=== PATIENT | male | born 1970 | race African-American/Black ===

== ENCOUNTER 2023-06-15 09:49 | Observation (INO) | payer BC ==
[2023-06-15] MEDS ORDERED: LIDOCAINE 2% INJ, 20 mL 20 ML ONE (10:14)
[2023-06-15] MEDS ORDERED: Phenylephrine HCl 10 MG/ML 1 ML VIAL ONE ×2 (10:23→11:00)
[2023-06-15] MEDS ORDERED: NA CHLORIDE 0.9% 2,000 ML ONE (11:00)
[2023-06-15 11:17] LABS: Absolute Basophils 0.1 K/uL (0-0.5); Absolute Eosinophils 0.1 K/uL (0-0.5); Absolute Lymphocytes (CBC) 1.9 K/uL (0.7-4.9); Absolute Monocytes 0.9 K/uL (0.1-1.3); Basophils % 1.2 % (0-1.3); Eosinophils % 0.8 % (0-4.4); Hematocrit 33.6 % (39.6-49.0); MCH 30.9 pg (27.0-35.0); MCHC 32.9 g/dL (32.0-36.0); MCV 93.9 fL (80-100); MPV 9.1 fL (7.6-11.3); Platelets 252 thou/uL (152-406); RBC Red Blood Cell Count 3.58 M/uL (4.33-5.43)
[2023-06-15 11:21] LABS: PT Prothrombin Time 12.4 SECONDS (9.5-12.5); Protime INR 1.13
[2023-06-15 11:34] LABS: Anion Gap 5.3 mEq/L (5.0-15.0); Potassium 3.3 mEq/L (3.5-5.1)
[2023-06-15] MEDS ORDERED: NA CHLORIDE 0.9% 250 ML ONE ×2 (11:34→12:02)
[2023-06-15] MEDS ORDERED: LIDOCAINE 2% MPF 5 ML VIAL ONE ×3 (11:42→12:29)
[2023-06-15 12:09] LABS: Barbiturates NEGATIVE (NEGATIVE); Benzodiazepines NEGATIVE (NEGATIVE); Cocaine NEGATIVE (NEGATIVE); METHAMPHETAM NEGATIVE (NEGATIVE); Methadone NEGATIVE (NEGATIVE); Opiates NEGATIVE (NEGATIVE); Phencyclidine NEGATIVE (NEGATIVE); THC Cannibis NEGATIVE (NEGATIVE)
[2023-06-15] MEDS ORDERED: NA CHLORIDE 0.9% 100 ML ONE (13:07)
[2023-06-15] MEDS ORDERED: MORPHINE 2 MG/ML SYR ONE (13:07)
[2023-06-15] MEDS ORDERED: CEFAZOLIN SODIUM 2 GM/VIAL ONE (13:08)
[2023-06-15 13:23] LABS: Blood Gas Oxyhemoglobin 95.1 % (94-97); Blood O2 Saturation 97.6 % (92-98.5)
[2023-06-15 13:24] LABS: Arterial Blood Carboxyhemoglob 0.9 % (0-1.5); Blood Gas THB 10.7 g/dl (12-18)
[2023-06-15] MEDS ORDERED: NA CHLORIDE 0.9% 1,000 ML ONE (14:11)
[2023-06-15] MEDS ORDERED: HYDROMORPHONE HCL 1 MG/ML INJ ONE (16:15)
[2023-06-15] MEDS ORDERED: ONDANSETRON 4 MG/2 ML VIAL ONE (16:15)
--- NOTE | 2023-06-15 19:43 | RAD REPORT ---
EXAM DESCRIPTION: CT - Pelvis Angio - 06/15/2023 7:33 pm CLINICAL HISTORY: rule out pelvic mass or arterial lesion, priaprism Pelvic pain and swelling COMPARISON: No comparisons FINDINGS: There is a large amount of soft tissue swelling as well as small air bubbles within the pe nile shaft and at the base of the penis. Inflammatory fat stranding is also present lower anterior pe lvis. No intrapelvic mass or free fluid collection. No vascular abnormality. IMPRESSION: Large amount of soft tissue swelling with small air bubbles involving the penile shaft. This is of unclear etiology and may be trauma related or infectious. Inflammatory changes are also pr esent in the fat anteriorly of the lower pelvis. No vascular abnormality seen. All CT scans are performed using dose optimization technique as appropriate and may include automated exposure control or mA/KV adjustment according to patient size.
--- NOTE | 2023-06-15 20:01 | ER ---
Nurse's Notes [facility] Name: Ramona Costello Jr Age: 52 yrs Sex: Male : 1970 Arrival Date: 06/15/2023 Time: 09:49 Bed 12 Private MD: Diagnosis: Priapism, unspecified Presentation: 06/14 10:25 Chief complaint: Patient states: priapism since yesterday, was seen at [facility]. iw Coronavirus screen: At this time, the client does not indicate any symptoms associated with coronavirus-19. Ebola Screen: Patient negative for fever greater than or equal to 101.5 degrees Fahrenheit, and additional compatible Ebola Virus Disease symptoms Patient denies exposure to infectious person. Patient denies travel to an Ebola-affected area in the 21 days before illness onset. No symptoms or risks identified at this time. Initial Sepsis Screen: Does the patient meet any 2 criteria? No. Patient's initial sepsis screen is negative. Does the patient have a suspected source of infection? No. Patient's initial sepsis screen is negative. Risk Assessment: Do you want to hurt yourself or someone else? Patient reports no desire to harm self or others. Onset of symptoms was June 15, 2023. 10:25 Method Of Arrival: Wheelchair iw 10:25 Acuity: ANIA 2 iw Historical: - Allergies: 11:00 No Known Allergies; ko1 - Immunization history:: Adult Immunizations up to date. - Infectious Disease History:: Denies. - Social history:: Smoking status: Patient denies any tobacco usage or history of. Screenin:17 [facility] ED Fall Risk Assessment (Adult) History of falling in the last 3 months, ko1 including since admission No falls in past 3 months (0 pts) Confusion or Disorientation No (0 pts) Intoxicated or Sedated No (0 pts) Impaired Gait No (0 pts) Mobility Assist Device Used No (0 pt) Altered Elimination No (0 pt) Score/Fall Risk Level 0 - 2 = Low Risk Oriented to surroundings, Maintained a safe environment, Educated pt \T\ family on fall prevention, incl call for assistance when getting out of bed, Assessed \T\ reinforced patient's understanding of fall precautions, Provided non-skid footwear, Hourly rounding (assess needs \T\ fall precautionary measures) done, Used ambulatory aids as needed (educated on \T\ assisted with), Used gait belt as appropriate. Abuse screen: Denies threats or abuse. Denies injuries from another. Nutritional screening: No deficits noted. Tuberculosis screening: No symptoms or risk factors identified. Assessment: 10:17 General: Appears in no apparent distress. uncomfortable, Behavior is calm, cooperative, ko1 appropriate for age. Pain: Complains of pain in shaft of penis. Neuro: No deficits noted. Cardiovascular: No deficits noted. Respiratory: No deficits noted. GI: No deficits noted. : No deficits noted. EENT: No deficits noted. Derm: No deficits noted. Musculoskeletal: No deficits noted. 11:00 Reassessment: Patient appears in no apparent distress at this time. No changes from ko1 previously documented assessment. Patient and/or family updated on plan of care and expected duration. Pain level reassessed. Patient is alert, oriented x 3, equal unlabored respirations, skin warm/dry/pink. 11:48 Reassessment: Dr Serna at bedside. ko1 14:20 Reassessment: Patient and/or family updated on plan of care and expected duration. Pain tl4 level reassessed. Patient is alert, oriented x 3, equal unlabored respirations, skin warm/dry/pink. Pt denies any needs at this time. Call figueroa given to patient with instruction. Family at bedside. Will continue to monitor. 16:47 Reassessment: No changes from previously documented assessment. Patient and/or family tl4 updated on plan of care and expected duration. Pain level reassessed. Patient is alert, oriented x 3, equal unlabored respirations, skin warm/dry/pink. Pt resting comfortably, denies needs. Family at bedside. Awaiting Dr. Serna to re-evaluate. Will continue to monitor. Call figueroa at bedside. 18:17 Reassessment: No changes from previously documented assessment. Patient and/or family tl4 updated on plan of care and expected duration. Pain level reassessed. Patient is alert, oriented x 3, equal unlabored respirations, skin warm/dry/pink. Pt updated on status. Pt denies any needs at this time. Family at bedside. Will continue to monitor. Patient denies pain at this time. 19:00 Reassessment: No changes from previously documented assessment. Patient and/or family tl4 updated on plan of care and expected duration. Pain level reassessed. Patient is alert, oriented x 3, equal unlabored respirations, skin warm/dry/pink. MD Serna at bedside to perform ABG. 06/15 00:46 Reassessment: Pt transfer upstairs delayed do to another emergency. vc1 Vital Signs: 06/14 10:00 BP 136 / 81; Pulse 69; Resp 16; Pulse Ox 99% on R/A; Weight 99.79 kg; Height 5 ft. 11 em1 in. ; Pain 5/10; 10:58 BP 128 / 66; Pulse 61; Resp 18; Pulse Ox 100% ; ko1 13:13 BP 133 / 85; Pulse 72; Resp 23 S; Pulse Ox 100% on R/A; kc6 14:00 BP 137 / 88; Pulse 76; Resp 15; Pulse Ox 99% on 3 lpm NC; ko1 16:00 BP 125 / 83; Pulse 64; Resp 16; Pulse Ox 100% on R/A; Pain 0/10; tl4 17:00 BP 119 / 72; Pulse 72; Resp 18; Pulse Ox 99% on R/A; tl4 18:00 BP 117 / 71; Pulse 60; Resp 16; Pulse Ox 100% on R/A; Pain 0/10; tl4 19:00 BP 127 / 88; Pulse 70; Resp 16; Pulse Ox 100% on 3 lpm NC; vc1 20:00 BP 138 / 88; Pulse 67; Resp 18; Pulse Ox 100% on 3 lpm NC; vc1 21:00 BP 147 / 91; Pulse 67; Resp 16; Pulse Ox 100% on 3 lpm NC; vc1 22:00 BP 128 / 88; Pulse 62; Resp 16; Pulse Ox 100% on 3 lpm NC; vc1 23:00 BP 124 / 71; Pulse 83; Resp 16; Temp 98.6; Pulse Ox 99% ; vc1 10:00 Body Mass Index 30.68 (99.79 kg, 180.34 cm) em1 10:00 Pain Scale: Adult em1 16:00 Pain Scale: Adult tl4 18:00 Pain Scale: Adult tl4 ED Course: 09:52 Patient arrived in ED. im 09:56 Mick Julio MD is Attending Physician. sp3 10:16 Tamy Rivera, MARIA INES is Primary Nurse. ko1 10:17 Patient has correct armband on for positive identification. Placed in gown. Bed in low ko1 position. Call light in reach. Side rails up X 1. Client placed on continuous cardiac and pulse oximetry monitoring. NIBP monitoring applied. security monitor on. Door closed. Noise minimized. Lights dimmed. Warm blanket given. 10:26 Triage completed. iw 11:10 BMP Sent. ko1 11:10 PT-INR Sent. ko1 11:10 CBC with Diff Sent. ko1 11:11 Initial lab(s) drawn, by me, sent to lab. Inserted saline lock: 20 gauge in right em1 antecubital area, using aseptic technique. Blood collected. 11:44 UDS Sent. ko1 13:21 ABG: Penis Sent. ko1 14:00 Assisted provider with: penile drainage. ko1 19:35 Pelvis Angio In Process Unspecified. EDMS 19:59 Kehinde Serna MD is Hospitalizing Provider. sb4 20:26 Primary Nurse role handed off by Tamy Rivera RN wm Administered Medications: 11:00 Drug: Lidocaine Infiltration (1 %) 20 ml 20 ml Infiltration once; to bedside Volume: 20 ko1 ml; Route: Infiltration; 16:46 Follow up: Response: No adverse reaction tl4 11:10 Drug: NS 0.9% IV 2000 ml IV at 1 bolus Per protocol; 1000 mL bolus Route: IV; Rate: 1 ko1 bolus; Site: right antecubital; 14:33 Follow up: Response: No adverse reaction; IV Status: Completed infusion; IV Intake: tl4 2000ml 13:21 Drug: ceFAZolin IVPB 2 grams IVPB once over 30 mins; (mix in 100 mL NS) Route: IVPB; ko1 Infused Over: 30 mins; Site: right antecubital; 14:33 Follow up: Response: No adverse reaction; IV Status: Completed infusion; IV Intake: tl4 100ml 13:22 Drug: morphine IVP or IV 2 mg IVP once over 4 mins Route: IVP; Infused Over: 4 mins; ko1 Site: right antecubital; 13:37 Follow up: Response: No adverse reaction; Pain is decreased ko1 14:34 Drug: NS 0.9% IV 1000 ml IV at 125 ml/hr continuous Route: IV; Rate: 125 ml/hr; Site: tl4 right antecubital; Delivery: Dial-a-flow; 16:45 Drug: Ondansetron IVP 4 mg IVP once; over 2 minutes Route: IVP; Infused Over: 2 mins; tl4 Site: right antecubital; 16:46 Drug: HYDROmorphone IVP 1 mg IVP once Route: IVP; Infused Over: 5 mins; Site: right tl4 antecubital; Medication: 11:00 VIS not applicable for this client. ko1 Intake: 14:33 IV: 2000ml; Total: 2000ml. tl4 14:33 IV: 100ml; Total: 2100ml. tl4 Outcome: 20:00 Decision to Hospitalize by Provider. sb4 06/15 01:20 Patient left the ED. vc1 Signatures: Dispatcher [employer] EDRuby Croft, Jonathan Saini RN emSruthi Powers Setul, MD MD sp3 Kaity Monique RN RN vc1 Jigna Mejias RN RN kc6 Oliver, Kathy, RN RN ko1 Nahomi Lucero, PA-C PA-Robert sb4 Tish Gallegos Toni, RN RN tl4 Corrections: (The following items were deleted from the chart) 06/14 16:47 12:20 Reassessment: Patient and/or family updated on plan of care and expected tl4 duration. Pain level reassessed. Patient is alert, oriented x 3, equal unlabored respirations, skin warm/dry/pink. Pt denies any needs at this time. Call figueroa given to patient with instruction. Family at bedside. Will continue to monitor tl4 19:36 16:48 BP 125 / 83; Pulse 64bpm; Resp 16bpm; Pulse Ox 100% RA; Pain 0/10, Adult; tl4 tl4 19:36 18:18 BP 117 / 71; Pulse 60bpm; Resp 16bpm; Pulse Ox 100% RA; Pain 0/10, Adult; tl4 tl4
--- NOTE | 2023-06-15 20:01 | EDPHYS ---
Physician Documentation [facility] Name: Ramona Costello Jr Age: 52 yrs Sex: Male : 1970 Arrival Date: 06/15/2023 Time: 09:49 Bed 12 Private MD: ED Physician Mick Julio HPI: 06/14 10:20 This 52 yrs old Black Male presents to ER via Unassigned with complaints of Priapism. sp3 10:20 52-year-old male with history of hypertension now presents with priapism since 8 AM sp3 yesterday. Patient went to [facility] yesterday afternoon where he states that they performed corpora cavernosum drainage which fix the problem temporarily but yesterday evening it became erect again. Today he presents with a 5 out of 10 painful erection. No history of trauma, prior priapism, ED medication, or any other ddja-yhq-gtealif meds at this time. He denies abdominal pain, back pain, dysuria, urethral discharge, or any other concerning findings on ROS at this time.. Historical: - Allergies: 11:00 No Known Allergies; ko1 - Immunization history:: Adult Immunizations up to date. - Infectious Disease History:: Denies. - Social history:: Smoking status: Patient denies any tobacco usage or history of. ROS: 10:21 Constitutional: Negative for fever, chills, and weight loss, Eyes: Negative for injury, sp3 pain, redness, and discharge, ENT: Negative for injury, pain, and discharge, Neck: Negative for injury, pain, and swelling, Cardiovascular: Negative for chest pain, palpitations, and edema, Respiratory: Negative for shortness of breath, cough, wheezing, and pleuritic chest pain, Abdomen/GI: Negative for abdominal pain, nausea, vomiting, diarrhea, and constipation, Back: Negative for injury and pain, MS/Extremity: Negative for injury and deformity, Skin: Negative for injury, rash, and discoloration, Neuro: Negative for headache, weakness, numbness, tingling, and seizure, 10:21 All other systems are negative, Exam: 10:21 Constitutional: This is a well developed, well nourished patient who is awake, alert, sp3 and in no acute distress. Head/Face: Normocephalic, atraumatic. Eyes: Pupils equal round and reactive to light, extra-ocular motions intact. Lids and lashes normal. Conjunctiva and sclera are non-icteric and not injected. Cornea within normal limits. Periorbital areas with no swelling, redness, or edema. Neck: Trachea midline, no thyromegaly or masses palpated, and no cervical lymphadenopathy. Supple, full range of motion without nuchal rigidity, or vertebral point tenderness. No Meningismus. Chest/axilla: Normal chest wall appearance and motion. Nontender with no deformity. No lesions are appreciated. Cardiovascular: Regular rate and rhythm with a normal S1 and S2. No gallops, murmurs, or rubs. Normal PMI, no JVD. No pulse deficits. Respiratory: Lungs have equal breath sounds bilaterally, clear to auscultation and percussion. No rales, rhonchi or wheezes noted. No increased work of breathing, no retractions or nasal flaring. Abdomen/GI: Soft, non-tender, with normal bowel sounds. No distension or tympany. No guarding or rebound. No evidence of tenderness throughout. Back: No spinal tenderness. No costovertebral tenderness. Full range of motion. Skin: Warm, dry with normal turgor. Normal color with no rashes, no lesions, and no evidence of cellulitis. MS/ Extremity: Pulses equal, no cyanosis. Neurovascular intact. Full, normal range of motion. 10:21 : Erect penis noted with soft head. Bandages present from yesterday's drainage., Vital Signs: 10:00 BP 136 / 81; Pulse 69; Resp 16; Pulse Ox 99% on R/A; Weight 99.79 kg; Height 5 ft. 11 em1 in. ; Pain 5/10; 10:58 BP 128 / 66; Pulse 61; Resp 18; Pulse Ox 100% ; ko1 13:13 BP 133 / 85; Pulse 72; Resp 23 S; Pulse Ox 100% on R/A; kc6 14:00 BP 137 / 88; Pulse 76; Resp 15; Pulse Ox 99% on 3 lpm NC; ko1 16:00 BP 125 / 83; Pulse 64; Resp 16; Pulse Ox 100% on R/A; Pain 0/10; tl4 17:00 BP 119 / 72; Pulse 72; Resp 18; Pulse Ox 99% on R/A; tl4 18:00 BP 117 / 71; Pulse 60; Resp 16; Pulse Ox 100% on R/A; Pain 0/10; tl4 19:00 BP 127 / 88; Pulse 70; Resp 16; Pulse Ox 100% on 3 lpm NC; vc1 20:00 BP 138 / 88; Pulse 67; Resp 18; Pulse Ox 100% on 3 lpm NC; vc1 21:00 BP 147 / 91; Pulse 67; Resp 16; Pulse Ox 100% on 3 lpm NC; vc1 22:00 BP 128 / 88; Pulse 62; Resp 16; Pulse Ox 100% on 3 lpm NC; vc1 23:00 BP 124 / 71; Pulse 83; Resp 16; Temp 98.6; Pulse Ox 99% ; vc1 10:00 Body Mass Index 30.68 (99.79 kg, 180.34 cm) em1 10:00 Pain Scale: Adult em1 16:00 Pain Scale: Adult tl4 18:00 Pain Scale: Adult tl4 MDM: 09:59 Patient medically screened. sp3 10:22 Data reviewed: vital signs, nurses notes. ED course: 52-year-old male with low flow sp3 priapism since yesterday with drainage performed yesterday at outside hospital. We will redrain here in the ED along with phenylephrine injection. Follow-up with Dr. Serna if we are able to resolve the issue otherwise he is on-call for urology in the emergency department. Disposition pending workup and patient course.. 11:03 ED course: 2% lidocaine without epinephrine injected bilaterally at the base area. sp3 Corpora aspiration performed bilaterally with 35 cc evacuated on the right side and less than 5 cc evacuated on the left side. Diluted saline flush with phenylephrine 10 mg/mL mixed in a 1:5 ratio. 4 injections totaling 1000 mcg injected over 20 minutes on each side. No resolution of erection noted. Patient is on oxygen and IV fluids. I discussed case with Dr. Serna urology on-call who will be in to see patient to perform further intervention. Lab work and U-Tox pending.. 13:56 ED course: Dr. Serna performed bedside drainage and intervention. Please see his note sp3 for details. Patient will remain in ED observation for at least [address] Serna stated that he will be back after his clinic to reevaluate for final disposition. Ancef 2 g IV has also been given. Patient will remain on oxygen and IV fluids.. 06/14 10:56 Order name: UDS; Complete Time: 12:14 sp3 06/14 11:03 Order name: CBC with Diff; Complete Time: 12:14 sp3 06/14 11:03 Order name: PT-INR; Complete Time: 12:14 sp3 06/14 11:03 Order name: BMP; Complete Time: 12:14 sp3 06/14 13:11 Order name: ABG: Penis; Complete Time: 13:32 sp3 06/14 21:39 Order name: CBC with Automated Diff EDMS 06/14 21:39 Order name: Basic Metabolic Panel EDMS 06/14 22:03 Order name: ABG Arterial Blood Gas EDMS 06/14 19:15 Order name: Pelvis Angio; Complete Time: 20:03 EDMS 06/14 22:11 Order name: RC 02 HUMIDIFIER EDMS 06/14 21:39 Order name: EKG Electrocardiogram EDMS 06/14 11:02 Order name: Oxygen: 2 L NC; Complete Time: 11:03 sp3 Administered Medications: 11:00 Drug: Lidocaine Infiltration (1 %) 20 ml 20 ml Infiltration once; to bedside Volume: 20 ko1 ml; Route: Infiltration; 16:46 Follow up: Response: No adverse reaction tl4 11:10 Drug: NS 0.9% IV 2000 ml IV at 1 bolus Per protocol; 1000 mL bolus Route: IV; Rate: 1 ko1 bolus; Site: right antecubital; 14:33 Follow up: Response: No adverse reaction; IV Status: Completed infusion; IV Intake: tl4 2000ml 13:21 Drug: ceFAZolin IVPB 2 grams IVPB once over 30 mins; (mix in 100 mL NS) Route: IVPB; ko1 Infused Over: 30 mins; Site: right antecubital; 14:33 Follow up: Response: No adverse reaction; IV Status: Completed infusion; IV Intake: tl4 100ml 13:22 Drug: morphine IVP or IV 2 mg IVP once over 4 mins Route: IVP; Infused Over: 4 mins; ko1 Site: right antecubital; 13:37 Follow up: Response: No adverse reaction; Pain is decreased ko1 14:34 Drug: NS 0.9% IV 1000 ml IV at 125 ml/hr continuous Route: IV; Rate: 125 ml/hr; Site: tl4 right antecubital; Delivery: Dial-a-flow; 16:45 Drug: Ondansetron IVP 4 mg IVP once; over 2 minutes Route: IVP; Infused Over: 2 mins; tl4 Site: right antecubital; 16:46 Drug: HYDROmorphone IVP 1 mg IVP once Route: IVP; Infused Over: 5 mins; Site: right tl4 antecubital; Disposition Summary: 06/15/23 20:00 Hospitalization Ordered Notes: Provider: Kehinde Serna sb4 Condition: Fair sb4 Problem: new sb4 Symptoms: are unchanged sb4 Bed/Room Type: Standard sb4 Hospitalization Status: Observation(06/15/23 20:43) sb4 Location: Telemetry/MedSurg (observation)(06/15/23 20:43) sb4 Room Assignment: [facility](06/15/23 23:38) vc1 Diagnosis - Priapism, unspecified sb4 Forms: - Medication Reconciliation Form sb4 - SBAR form sb4 - Leadership Thank You Letter sb4 Signatures: Dispatcher [employer] EDMS Mick Julio MD MD sp3 Kaity Monique RN RN vc1 Tamy Rivera RN RN koNahomi Torres PA-C PA-C sb4 Porfirio Gordillo RN RN tl4 Corrections: (The following items were deleted from the chart) 11:15 11:03 ED course: 2% lidocaine without epinephrine injected bilaterally at the base sp3 area. Corpora aspiration performed bilaterally with 35 cc evacuated on the right side and less than 5 cc evacuated on the left side. Diluted saline flush with phenylephrine 10 mg/mL mixed in a 1:5 ratio. 4 injections totaling 1000 mcg injected over 20 minutes on each side. No resolution of erection noted. I discussed case with Dr. Serna urology on-call who will be in to see patient to perform further intervention.. sp3 13:11 13:11 Arterial Blood Gas+RC.LAB.BRZ ordered. EDMS EDMS 19:15 18:55 Pelvis W/Cont+CT.RAD.BRZ ordered. EDMS EDMS 20:04 20:00 Telemetry/MedSurg (Inpatient) sb4 sb4 20:04 20:00 sb4 sb4 20:43 20:00 Inpatient Admission sb4 sb4 20:43 20:04 Operating Room sb4 sb4 20:43 20:04 sb4 sb4 23:38 20:43 sb4 vc1
[2023-06-15] MEDS: ASPIRIN EC 81 MG TAB PO ONE (21:16)
[2023-06-15] MEDS: BACLOFEN 10 MG TAB PO ONE (21:16)
[2023-06-15 22:01] LABS: Blood Gas Oxyhemoglobin 20.1 % (94-97); Blood O2 Saturation 20.5 % (92-98.5)
[2023-06-15 22:02] LABS: Arterial Blood Carboxyhemoglob 0.3 % (0-1.5)
--- NOTE | 2023-06-15 22:13 | P.HP ---
Date of Service: 06/15/23 52-year-old gentleman with hypertension and hypercholesterolemia presented to the [facility] emergency department this morning with complaints of priapism. He had previously been seen at the [facility] emergency department yesterday evening around 6 PM, where he was apparently given some phenylephrine injections intracorporeal in addition to possible aspiration/irrigation before being discharged home. It is unclear the degree of resolution, but he returned to the [facility] emergency de partment this morning with recurrent painful priapism. His erection, the patient notes, began around 9 AM yesterday. In the [facility] emergency department, the ED physicians provided the patient with 2 injections into each corporal body of 500 mcg phenylephrine and aspirated his corporal bodies using an 18-gauge Angiocath without resolution of the priapism, at which point they contacted me around 11:15 AM. I arrived to visit with the patient and evaluate around 11:45 AM and performed a series of procedures as documented below. Past medical history: As above Past surgical history: Noncontributory Family history: Denies urologic malignancy Social history: Denies recreational drug use and toxicology screen negative Examination: Patient uncomfortable appearing and in a mild to moderate degree of distress but joking potentially as a compensatory mechanism I had already requested the emergency department start an IV and give him 2 L of IV fluids, and that was running with only about 50 to 100 cc administered. I also requested the emergency department give him nasal cannula oxygen, and he was receiving 2 L, which I have then increased to 3 L during the course of my initial visit with him at 11:45AM Patient's abdomen was nontender and nondistended Phallus was rigidly erect with subcutaneous edema and hematoma from prior needlesticks, aspiration and injection. Phallus tender to palpation but no superficial signs of infection. Warm to the touch. The rigidity extended into the infrapubic region along the pubic rami. The glans penis was not tense or rigid or tender. 06/15/2023 WBC 8.0, hemoglobin/hematocrit 11.0/33.6, platelets 252, INR 1.13, potassium 3.3, creatinine 1.29 with EGFR 67, toxicology screen negative Penile block followed by extensive corporal aspiration, irrigation, and phenylephrine injection procedure note: I prepped the patient's phallus in its entirety with Betadine including the infrapubic region before using 20 cc of 2% lidocaine diluted one-to-one with sterile injectable saline, injected into the infrapubic region in the midline and bilaterally in the region of the neurovascular bundles in order to achieve a penile block. This did result in significant relief of the patient's pain as the phallus became numb. I was then able to manipulate the phallus as follows. 18-gauge needle was placed into the base of the phallus laterally in the right corporal body to begin to drain some blood. I then placed a another 18-gauge needle into the base laterally in the left corporal body, avoiding the neurovascular bundles on each side. I then utilized these 2 attempt to aspirate blood and irrigated with sterile injectable saline. After the initial period of aspiration and irrigation, without significant resolution of the tumescence, I then utilized 500 micrograms of phenylephrine diluted in 35 cc of injectable saline, and I administered equal aliquots of about 12.5 cc of the dilute mixture, or about 150 to 200 mcg of phenylephrine, into each needle or Angiocath currently inserted. The phallus did appear to partially, but incompletely, detumesce. As a result, I placed an additional 14-gauge Angiocath into the wood ent's left corporal body more proximal to the 18-gauge needle previously placed and still in position. This did improve the drainage on the left side, which was initially not draining as well despite attempts at aspiration and irrigation as well as phenylephrine injection. I then continued to perform a degree of penile modeling to try to express out all of the trapped blood, and I was successful and achieving near complete detumescence of the distal two thirds of the phallus, but the proximal one third and area involving the corporal rami remained tumescent and tender to palpation and attempts to express blood from within. As a result, I continued aspiration, irrigation, and a injected an additional 500 mcg of phenylephrine into each of the placed Angiocath or needles again. More than 15 to 20 minutes elapsed between each bout of phenylephrine injection. While the phallus did appear to significantly detumesced and I was eventually able to aspirate much of the blood from within the infrapubic corporal rami, the phallus remained likely 40% erect; so I continue to aspirate and irrigate achieving good flow within the right corporal body but less excellent flow in the left. This would suggest continued compartment syndrome at least within the left corporal body. So at this point, I placed an additional 14-gauge Angiocath into the distal left corporal body laterally and again allowed a significant quantity of blood to drain before irrigating and ultimately injecting another 250 mcg of phenylephrine. Significant improvement in flow from proximal to distal on the left side was then achieved, but the phallus still remained incompletely flaccid. I thus placed an additional 14-gauge Angiocath in the distal right corporal body laterally and again allowed blood to drain before again irrigating and injecting the last 250 mcg of phenylephrine in order to achieve detumescence that was approximately 40% of the rigid state. I thus began to remove each of the needles and Angiocath's sequentially, holding pressure and the spot for several minutes also remodeling the penis to try to express out the blood between the Angiocath or needle removal, with the last Angiocath being removed from the left distal corporal body. At this point, it was clear that the blood emanating from the corporal body on the left was bright red and arterial appearing; so I obtained an ABG, which revealed the followin:13 PM penile ABG pH 7.39, pCO2 33.9, pO2 113, HCO3 20.1 -arterial blood flow. As a result, I recommended a period of observation to see if the phallus would continue to detumesce, during which time we will continue the patient on IV fluids, which he was receiving at 125 cc/h, and the nasal cannula oxygen therapy. During the procedure, I additionally gave him 2 mg of morphine for pain control, and I reapplied 10 cc of 2% lidocaine diluted one-to-one and injectable saline to attempt to repeat the penile block, as I had been at the procedure for now over 1.5 hours, and the initial block had worn off. I returned to see the patient around 6:45 PM this evening, and reassess the patient. He was more comfortable appearing at this point, but he had been given 1 mg of Dilaudid, which significantly relieved any discomfort he may have had. Prior to the administration of the Dilaudid, a sounded like he was having a moderate degree of discomfort, which she mostly described as soreness in the phallus but no significant pain. As a result, I reassessed his phallus as below: Reassessment examination: Patient comfortable appearing and in no acute distress Alert awake oriented x 3 No dyspnea or sign of respiratory distress Phallus approximately 60% rigid, partially bendable, with a composite of 50% resolution of the rigidity in the infrapubic corporal bodies versus 70% rigidity in the pendulous component of the phallus. Because of concern for ongoing ischemia and compartment syndrome, while there was significant edema and potentially hematoma around the corporal bodies, I recommended a repeat attempt at penile ABG to assess. Penile arterial blood gas assessment procedure note: I utilized an alcohol pad to prep the mid base shaft of the right lateral aspect of his penis, and I utilized the ABG needle inserted through the skin deeply to try to get into the corporal body. No blood filled the syringe, and the ABG syringes not eligible for aspiration. So I manipulated the needle backing it out a bit while manually compressing the phallus until I was able to express some blood into the ABG syringe, but it is unclear if that blood was from the surrounding blood collected in the dark toes layers and subcutaneous layers versus actually a corporal body. 7:10 PM penile ABG pH 6.953, pCO2 83.2, pO2 23.2, bicarb 17.5 Given the above findings, I then consulted with the psychology department chair, Dr. Gio Hylton via phone and also a expert in management of phallic issues, Dr. Tin Lainez, co-faculty with [facility], to discuss options for next steps, as I was anticipating the need for operative intervention and planning a distal carporoglandar/Sanz shunt. Upon discussion of the history above, Dr. Hylton felt it would be reasonable to either observe him overnight potentially intervene in the morning if it fails to improve versus proceeding with immediate Sanz shunt. Dr. Lainez also felt it would be reasonable to observe him overnight, given the estimated 30 to 40% reduction in rigidity of the erection, during which time medical therapies including aspirin and potentially application of an intermittently applying blood pressure cuff to manually exp ress the phallus, could be performed, but he also indicated that as it was approaching 36 hours of priapism, it would be completely reasonable to immediately proceed not just to performing a Sanz shunt, but also the strongly recommended that the corporal bodies be snaked out/rodded out to eliminate the potential for recurrent priapism and need for repeat operative excursion. As a result, I had begun to consult with the patient and his significant other, who is a nurse and mother of one of his children, as I had done throughout the entirety of both of my evaluations above, where I explained the potential need for the shunt. After discussion with Dr. Lainez, I explained that the more expert recommendation would be not just to do the shunt but also to destroy the sinusoidal tissues of the corporal bodies to prevent recurrence of the priapism. I explained to the patient and his significant other in great detail that while it is highly likely his ability to achieve an erection spontaneously following the corporal dilation along with the shunt, it is not impossible that he might be able to achieve an erection. I made it very clear that that was unlikely however. We contrasted this with the decision to observe, during which time ongoing ischemia would likely continue to contribute to corporal fibrosis, which would also eliminate his ability to achieve a functional erection. I explained that while some individuals would proceed directly to placement of a prosthesis after 24 to 36 hours of priapism, that also would eliminate his ability to achieve a spontaneous erection and relegate him to requiring erection via mechanical device. I also explained that we do not have either malleable or other inflatable penile prostheses present at this facility; so placement of a prosthesis at this time would not be able to be performed regardless. Extensive discussion was held including the pros and cons of each approach over the course of over 1 hour of discussion. Ultimately, the patient decided to observe for the night, noting the partial detumescence, and accept the risks associated with potential continuation of the compartment syndrome. Assessment and recommendation: 52-year-old gentleman with hypertension and hypercholesterolemia with longstanding, 34 hours of priapism refractory to multiple attempts at aspiration, irrigation and phenylephrine injection, now partially detumesced approximately 30 to 40%. -See extensive discussion above. Plan as below: Admit for observation LR at 150 cc/h Continue nasal cannula O2 at 3 L/min N.p.o. after 11 PM tonight but may have ice chips and sips of water Repeat labs, CBC and BMP at 5 AM Initiate subcu heparin 5000 units every 8 hours Dilaudid 0.5 mg every 2 hours as needed moderate pain Aspirin 162 mg x 1 dose now Baclofen 20 mg x 1 dose now Ceftriaxone 1 g every 12 hours starting now Sildenafil 20 mg x 1 at 2 AM Terbutaline 2.5 mg x 1 now Pediatric blood pressure cuff cycled every 2 minutes applied distally to the phallus beneath the sunshine of the glans penis as long as it does not cause significant pain with the pressure on inflation
[2023-06-15] MEDS ORDERED: NA CHLORIDE 0.9% 50 ML ONE (22:44)
[2023-06-15] MEDS ORDERED: ASPIRIN EC 81 MG TAB PO ONE (22:44)
[2023-06-15] MEDS ORDERED: HEPARIN 5000 UNIT/ML 1 ML VIAL ONE (22:44)
[2023-06-15] MEDS ORDERED: Ringers Lactate 1,000 ML IV ONE (22:44)
[2023-06-15] MEDS: CEFTRIAXONE 1,000 MG in NA CHLORIDE 0.9% 50 ML IVPB SCH (22:55)
[2023-06-15] MEDS: Ringers Lactate 1,000 ML IV SCH (23:00)
[2023-06-15] MEDS: HEPARIN 5000 UNIT/ML 1 ML VIAL SQ SCH (23:00)
[2023-06-15] MEDS ORDERED: HYDROMORPHONE HCL 0.5 MG/0.5 ML INJ ONE (23:02)
[2023-06-15] MEDS: BACLOFEN 10 MG TAB ONE (23:07)
[2023-06-15] MEDS: HYDROMORPHONE HCL 1 MG/ML INJ IV PRN (23:07)
[2023-06-15] MEDS: SILDENAFIL CITRATE 20 MG TABLET PO ONE (23:57)
[2023-06-16] MEDS: TERBUTALINE SULF 2.5 MG TAB PO ONE (00:10)
[2023-06-16] MEDS: HYDROMORPHONE HCL 0.5 MG/0.5 ML INJ IV PRN (02:33)
[2023-06-16 03:15] VITALS: BMI 30.7
[2023-06-16 04:36] LABS: Absolute Eosinophils 0.1 K/uL (0-0.5); Absolute Lymphocytes (CBC) 1.9 K/uL (0.7-4.9); Absolute Monocytes 0.7 K/uL (0.1-1.3); Absolute Neutrophil 3.3 K/uL (1.8-8.0); Basophils % 0.8 % (0-1.3); Hematocrit 25.7 % (39.6-49.0); Hemoglobin 8.6 g/dL (13.6-17.9); Lymphocytes % 31.2 % (15.3-44.8); MCH 31.5 pg (27.0-35.0); MCHC 33.5 g/dL (32.0-36.0); MCV 93.9 fL (80-100); MPV 9.7 fL (7.6-11.3); Monocytes % 11.3 % (3.3-12.3); Neutrophils % 55.7 % (41.7-73.7); Platelets 185 thou/uL (152-406); RBC Red Blood Cell Count 2.74 M/uL (4.33-5.43); Red Cell Distribution Width 14.6 % (12.1-15.2)
[2023-06-16 04:42] LABS: Anion Gap 8.5 mEq/L (5.0-15.0); Potassium 3.5 mEq/L (3.5-5.1)
[2023-06-16] MEDS: BACITRACIN OINTMENT 14 GM TUBE TOP ONE (07:06)
[2023-06-16] MEDS ORDERED: LIDOCAINE 2% MPF 5 ML VIAL ONE (07:23)
[2023-06-16] MEDS ORDERED: ROCURONIUM 50 MG/5 ML VIAL IV ONE (07:23)
[2023-06-16] MEDS ORDERED: propofoL 200 MG/20 ML VIAL IV ONE (07:23)
[2023-06-16] MEDS ORDERED: FENTANYL CITR 100 MCG/2 ML ONE (07:23)
[2023-06-16] MEDS ORDERED: MIDAZOLAM HCL 2 MG/2 ML INJ ONE (07:23)
[2023-06-16] MEDS ORDERED: ONDANSETRON 4 MG/2 ML VIAL ONE (07:23)
[2023-06-16] MEDS: SUGAMMADEX SODIUM 200 MG/2 ML VIAL IV ONE (07:28)
[2023-06-16] MEDS: SUCCINYLCHOLINE 20 MG/ML (10 ML) IV ONE (07:28)
[2023-06-16] MEDS: Ringers Lactate 1,000 ML IV ONE ×2 (07:42→09:00)
[2023-06-16] MEDS ORDERED: EPHEDRINE SULF 50 MG/ML VIAL ONE (08:00)
--- NOTE | 2023-06-16 08:04 | P.PN ---
Subjective Date of Service: 06/16/23 Chief Complaint: priapism He received all of the medications last night with the exception of the terbutaline, because it was not available on formulary despite its availability to prescribe electronically. Initially, the sildenafil was also seen is not available, but they were able to find a dose and provide him with that as well. He tolerated use of the pediatric blood pressure cuff compression therapy during the night for several hours before ultimately taking it off because of pain. They did appreciate some decrease in the turgidity following that therapy, but then it reverted a bit. As of yesterday evening around 8 PM, I noted that the decrease and priapism/tumescence to be between 30 and 40% of my initial assessment of the rigidity. As of this morning at 7:30 AM, he was having no significant pain even with manipulation of his phallus. He last received a dose of 0.5 mg of IV Dilaudid at 2:30 AM. Examination: Thickened subcutaneous tissue likely with blood/hematoma within, but nontender and malleable to around 40 to 50% from full rigidity observed yesterday. I spoke with the patient and his significant other for around 20 minutes this morning by phone, where they expressed having discussed this further with his mother and other family members and wondering about the potential for transfer to another facility versus simply performing the shunt without reaming out the corporal bodies. I explained that unfortunately, given the time elapsed that is occurred, additional time delay for transfer would be ill-advised, and also, since all of the urologists at the [facility] are away at the [employer] annual meeting, there is no subject matter expertise available beyond that which I am capable of providing. As it relates to the idea of performing the shunt alone without reaming out the corporal bodies, I discussed that further with Dr. Lainez, subject matter expert, and when I met with the patient and his significant other at around 7:30 AM, I then explained to the patient that we could do only the shunt, if that is what he desired, but the chances of it being successful at resolving his priapism was less than 10%. Further, the likelihood of corporal fibrosis and permanent erectile dysfunction was high whether we reamed out the corporal bodies or not, and equally as high at this point given the greater than 24 hours of priapism. However ultimately, I agreed to proceed as he desired since he would have to live with his decision in terms of the outcome. He expressed a desire to try to preserve what ever chance may be, however small, and his ability to potentially recover the ability to achieve a spontaneous erection, and not undergo corporal body reaming at this time and instead simply undergo the shunt. He recognized that should this fail, there may be need for additional operative management down the line, and he would not be eligible for a prosthesis for at least 3 weeks because of the risk of extrusion or erosion of the prosthetic. In summary, we agreed that I would begin with a distal corporoglandar shunt, followed sequentially if necessary by a proximal cannula to attempt to irrigate out the sludge then potentially a proximal shunt corporocavernosal to attempt to achieve at least a significant degree of further detumescence, but ultimately, if not improved over where we started, while already under anesthesia, reaming out of the corporal bodies may be required. I explained that it would not be reasonable to wake him up with an erection as bad or worse than it currently is. He agreed. Physical Examination - Vital Signs Temperature: 98.9 F Blood Pressure: 116/49 Pulse: 60 Respirations: 17 Pulse Ox (%): 99 - Studies Laboratory Data (last 24 hrs) 06/15/23 06/15/23 06/15/23 11:05 11:05 11:05 WBC 8.00 Hgb 11.0 L Hct 33.6 L Plt Count 252 PT 12.4 INR 1.13 Sodium 137 Potassium 3.3 L BUN 10 Creatinine 1.29 Glucose 97 Assessment And Plan - Current Problems (Diagnosis) (1) Ischemic priapism Current Visit: Yes Status: Acute Critical Care: No Time Spent Managing PTS Care (In Minutes): 60
[2023-06-16] MEDS: CEFTRIAXONE 1000 MG/VIAL ONE (08:18)
[2023-06-16] MEDS: BUPIVACAINE 0.25% PF 30 ML VIAL ONE (08:32)
[2023-06-16] MEDS: LIDOCAINE 1% MPF 30 ML VIAL ONE (08:32)
[2023-06-16] MEDS: NA CHLORIDE 0.9% 1,000 ML ONE (08:46)
[2023-06-16] MEDS: HEPARIN 5000 UNIT/ML 1 ML VIAL ONE (08:56)
[2023-06-16 09:04] LABS: Arterial Blood Carboxyhemoglob 0.8 % (0-1.5); Blood Gas Oxyhemoglobin 90.4 % (94-97); Blood O2 Saturation 92.2 % (92-98.5)
[2023-06-16 09:06] LABS: Blood Gas Inspired Oxygen 0.2 %
[2023-06-16 09:36] LABS: Blood O2 Saturation 98.8 % (92-98.5)
[2023-06-16 09:37] LABS: Arterial Blood Carboxyhemoglob 0.8 % (0-1.5); Blood Gas Oxyhemoglobin 96.8 % (94-97); Blood Gas THB 10.7 g/dl (12-18)
--- NOTE | 2023-06-16 10:26 | P.OP ---
Date of Service: 06/16/23 Preoperative diagnosis: Refractory priapism s/p multiple attempts at corporal aspiration and phenylephrine injection Postoperative diagnoses: Same Principal procedures: Placement of a urethral Joseph catheter Penile block Creation of a corporocavernosoglandar shunt Corporal aspiration and irrigation Indication for procedure: 52-year-old gentleman with hypertension and hypercholesterolemia with longstanding, >34 hours of priapism refractory to multiple attempts at aspiration, irrigation and phenylephrine injection, and persistent despite overnight observation and intensive medical management including aspirin, subcu heparin, terbutaline, IV fluids, oxygen administration, baclofen, and ceftriaxone administration. Procedure note: The patient was consented in the preoperative holding area before being transferred to the operative suite where general anesthesia was induced. He was placed in the low lithotomy position, padded and secured to the table appropriately. His genitalia, suprapubic region and perineal region was prepped in standard fashion using Betadine scrub followed by paint before being draped in standard fashion. An 18 Latvian urethral Joseph catheter was placed via his urethra into his bladder with ease and 10 cc of sterile water was placed in the balloon. The catheter was allowed to decompress of several 100 cc of clear yellow urine. I then clamped the catheter leaving it in place and palpated the corporal bodies of the penis which was still partially rigid at about 60% rigidity at this point. As a result, I utilized a one-to-one mixture of quarter percent Marcaine and 1% lidocaine to inject 10 cc of the mixture in the infrapubic midline and an additional 10 cc bilaterally in the region of the neurovascular bundles for a total of approximately 30 cc administered. I additionally provided a wheal of lidocaine subcutaneously in the glans penis lateral to the meatus in the region of anticipated shunt. I then utilized an 11 blade to incise the glans penis approximately 0.5 cm on each side, and I advanced the 15 blade down and into the tip of the corporal body on each side. I then rotated the blade in order to dilate the hole created, and was then able to express a degree of ischemic appearing blood from the phallus through that shot had not been created, which was now externalized. The phallus did partially detumesce at this point, but still remained about 40 to 50% rigid. As a result, I then employed a 14-gauge Angiocath placed very proximally within the corporal bodies laterally on each side with the phallus placed on stretch in order to get as proximal as possible. I allowed this to decompress some and attempted to express the bladder out of the penis before been utilizing a Luer- Migdalia syringe and injectable saline to irrigate via the Angiocath out of the shunt created between the corporal bodies and the glans penis. This did encourage release of even more of these ischemic blood, but the flow of the shunt was still somewhat limited and the rigidity remained to a slight degree. So at this point, I utilized a Celestine-Cut punch biopsy, inserted via the incision and the glans on each side and to the tips of the corporal bodies completing the fistula. At this point, I was able to significantly manually express blood from within the phallus and significantly achieve detumescence of the penis. I then continue to irrigate the phallus via the Angiocath's using heparinized saline composed of a mixture of approximately 1 L of injectable normal saline with 5000 units of heparin mixed in. I continue this irrigation until I could irrigate forcefully without achieving an erection/tumescence of the phallus and the irrigation simply flowed through the phallus out the shunt at the tip of the penis. I was also able to completely squeeze and manipulate the phallus bending it reflecting its complete detumescence. As a result, I then took a secondary arterial blood gas from the blood leaving the shunt and that gas revealed excellently oxygenated and normal appearing blood. I then observed the phallus for a period of time to assess for signs of retumescence, and there did appear to be a slight increase in fullness associated with the pulsatile visibility of the phallus, suggestive of high flow state. However despite this, the phallus was still bendable 270 to 360 degrees. I continue to observe for over the next 45 minutes to ensure it did not gain any additional tumescence, and during the last 15 minutes of observation, I utilized a 3-0 chromic suture to close the incision sites and the glans penis. After extensive observation and retumescence of the phallus did not occur to any great significance, I constructed a setting where a cigar of gauze was placed between the dorsal base of the penis with the phallus wrapped around it until the glans penis was touching the suprapubic region, and I applied gauze over that with some tape loosely applied to hold it in the flexed position to try to minimize the risk of retumescence and recurrence of the priapism. The catheter was taped to his anterior abdomen, and continued clear yellow urine drained. As a result, he was awakened from general anesthesia after being taken out of the lithotomy position, transferred to a stretcher, and then transferred to the recovery room in good condition. Over the course of the next 45 minutes of observation in the recovery room, the phallus remained nicely bent without any significant retumescence and the patient was comfortable without any significant pain. Complications: None Discharge disposition: We will observe him over the course of the next several hours during the day today, and we will continue the daily aspirin, low-dose sildenafil, baclofen, and subcutaneous heparin as well as IV fluids and ceftriaxone every 12h. If by the end of the day the phallus remains relatively flaccid without recurrence of the priapism, he may be discharged home without the catheter, and I will send him with several additional days of antimicrobial, Bactrim, and each of the medications above available for outpatient administration including terbutaline. Findings and Operative Technique
[2023-06-16] MEDS: OXYBUTYNIN ER 5 MG TAB PO ONE (10:35)
[2023-06-16 11:40] LABS: Absolute Lymphocytes (CBC) 0.7 K/uL (0.7-4.9); Absolute Monocytes 0.2 K/uL (0.1-1.3); Absolute Neutrophil 9.3 K/uL (1.8-8.0); Basophils % 0.3 % (0-1.3); Eosinophils % 0.1 % (0-4.4); Hematocrit 26.4 % (39.6-49.0); Hemoglobin 8.9 g/dL (13.6-17.9); Lymphocytes % 7.1 % (15.3-44.8); MCH 31.6 pg (27.0-35.0); MCHC 33.6 g/dL (32.0-36.0); MCV 94.1 fL (80-100); Monocytes % 2.2 % (3.3-12.3); Neutrophils % 90.3 % (41.7-73.7); Platelets 186 thou/uL (152-406); RBC Red Blood Cell Count 2.81 M/uL (4.33-5.43); Red Cell Distribution Width 14.8 % (12.1-15.2)
[2023-06-16 13:01] LABS: White Blood Cell Scan OK (OK)
[2023-06-16 13:02] LABS: Blood Morphology Comment NOT SEEN (NOT SEEN); Platelet Estimate ADEQ
[2023-06-16] MEDS: ASPIRIN EC 81 MG TAB PO SCH (17:08)
[2023-06-16 20:25] VITALS: O2SAT 98
[2023-06-16] MEDS: SILDENAFIL CITRATE 20 MG TABLET PO SCH (21:35)
[2023-06-16] MEDS: HYDROCODONE/APAP 5/325 MG TAB PO PRN (21:35)
[2023-06-16] MEDS: BACLOFEN 10 MG TAB PO SCH (21:43)
--- NOTE | 2023-06-16 22:05 | P.DS ---
Admission Date: 06/15/23 Discharge Date: 06/16/23 Disposition: ROUTINE DISCHARGE Discharge Condition: FAIR Reason for Admission: priapism - Problems (1) Ischemic priapism Current Visit: Yes Status: Acute Brief History of Present Illness: 52yo gentleman with HTN and hyperlipidemia, who suffered >27 hours of ischemic priapism and 2 ER physician manipulations with aspiration and phenylephrine injections prior to urologic consultation and intervention yesterday, 06/15/23, with aspiration, irrigation, and phenylephrine injection to achiever partial detumescence and confucianist of arterial flow followed by a period of observation in the ER with partial recurrence prompting admission of overnight medical management. Hospital Course: Overnight, he was given multiple medications including sqHeparin, ASA, Ceftriaxone, Baclofen, and low dose Sildenafil to try to convert the ischemic priapism to non-ischemic. A pediatric BP cuff was also applied and cycled frequently for several hours to try to manipulate the sludge within the penis. The next morning, there was minimal to negligible improvement in the degree of tumescence; so after extensive consultation, he elected to proceed with distal corporo-glandar shunt as opposed to shunt and rodding out of the cavernosal bodies, to attempt to preserve some, albeit low, potential for recovery of erectile function after this event. He was told on several occasions that regardless of what we did or didn't do, he had a >90% likelihood of corporal fibrosis and permanent ED. Since rodding out the penis may increase that risk to >95%, he preferred to avoid that and just start with the shunt. This was completed with success and detumescence with completely bendable phallus to 270-360 degrees with ease for >2-3 hours of observation, before he was returned to the floor for continued obervation over the next 10 hours. He did have some recurrence of the tumescence, but it was not painful or rigid and still at least 50% bendable at the time of planned discharge. Vital Signs/Physical Exam: Temp Pulse Resp BP Pulse Ox 97.6 F 81 18 122/68 97 06/16/23 16:00 06/16/23 16:06/16/23 21:35 06/16/23 16:06/16/23 21:35 General: Alert, In no apparent distress, Oriented x3, Cooperative HEENT: Atraumatic, Normocephalic, PERRLA, Mucous membr. moist/pink Respiratory: Normal air movement Neurological: Normal speech Laboratory Data at Discharge: WBC 10.30 thou/uL (4.3-10.9) 06/16/23 11:16 Hgb 8.9 g/dL (13.6-17.9) L 06/16/23 11:16 Hct 26.4 % (39.6-49.0) L 06/16/23 11:16 Plt Count 186 thou/uL (152-406) 06/16/23 11:16 PT 12.4 SECONDS (9.5-12.5) 06/15/23 11:05 INR 1.13 06/15/23 11:05 Sodium 141 mEq/L (136-145) 06/16/23 03:58 Potassium 3.5 mEq/L (3.5-5.1) 06/16/23 03:58 BUN 10 mg/dL (7-18) 06/16/23 03:58 Creatinine 1.22 mg/dL (0.70-1.30) 06/16/23 03:58 Glucose 105 mg/dL (74-106) 06/16/23 03:58 Home Medications: Amlodipine/Olmesartan 5/40 1 tab PO DAILY 06/16/23 Baclofen [Lioresal*] 20 mg PO BEDTIME #14 tab 06/16/23 Fenofibrate 160 mg PO DAILY 06/16/23 Hydrocodone 5/APAP 325 [[place] 5/325*] 1 tab PO Q4H PRN #15 tab 06/16/23 Smz./Tmp. [Bactrim Ds 800 MG/160 MG] 1 tab PO BID #20 tab 06/16/23 Terbutaline Sulfate 5 mg PO DAILY #14 tab 06/16/23 New Medications: Smz./Tmp. [Bactrim Ds 800 MG/160 MG] 1 tab PO BID #20 tab Baclofen [Lioresal*] 20 mg PO BEDTIME #14 tab Hydrocodone 5/APAP 325 [[place] 5/325*] 1 tab PO Q4H PRN #15 tab PRN Reason: Pain Scale 5-7 (Moderate) Terbutaline Sulfate 5 mg PO DAILY #14 tab Physician Discharge Instructions: You have experienced ischemic priapism. At the conclusion of the corporoglandar "Winter's" shunt created today, we achieved near complete detumescence with completely bendable (270-360 degrees) phallus. During the last several hours of observation, a degree of tumescence/firmness has recurred, but it is not painfully erect. As we discussed, if the erection becomes more firm, rigid again, and painful, the next step would require destruction of the corporal tissue allowing the erection (rodding out the penis). Again, a prosthesis would not be eligible for placement for another 3 weeks. To minimize the recurrence of the priapism, I would like you to continue taking an adult aspirin (325mg) daily at home, in addition to the other prescriptions and pain medications I sent for you. I have also sent an antibiotic (Bactrim/TMP-SMZ) for you to continue to minimize the risk of infection following all of the manipulation you have currently undergone. This is a sulfa drug, which is effective for what you've been through. Even though you do not have a known allergy to sulfa, rarely individuals may develop an allergy to this antibiotic. Should you develop a skin rash, mouth sores, or other signs of an allergic reaction, stop it immediately and notify me via my office. 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 It is unclear how effective it would be in the longstanding priapism setting. That said, I do not see any harm to trying the immediate-release version to see if it would help. You may shower, but avoid tub baths for the next 3 days. Apply Neosporin/Bacitracin to the incision sites in the head of the penis, twice daily and as needed. Avoid any sexual stimulation for the next 3 weeks mimimum, even if the priapism continues to resolve without issue over the next few days. Notify me if you develop any fever (temp >100.4F), intractable nausea/vomiting, or increasing pain as described above. Please follow up with me intervally to reassess your erectile function (2-3 weeks), but notify me sooner if the situation worsens in the meantime. Please call my office to schedule. All the best! [facility] [phone] office Diet: Regular Activity: No lifting more than 10 lbs (for the next 5-7 days) Followup: BLAISE WELSH [Primary Care Provider] - Kehinde Serna [ACTIVE - CAN ADMIT] - Time spent managing pt's care (in minutes): 90
[2023-06-16 22:33] VITALS: BP 134/70; TEMP 97.9
== END 2023-06-16 22:45 | disposition home or self-care (01) ==
LOC: ER 09:49 → ERHOLD 23:29 → 2ND 06-16 01:11
PROVIDERS: ADMIT Urology; ATTEND Urology
PROC: 0VQS0ZZ Repair Penis, Open Approach (ICD-10-PCS; principal; 2023-06-16 07:30)
DX: N48.30 Priapism, unspecified (principal); I10 Essential (primary) hypertension; E78.00 Pure hypercholesterolemia, unspecified
CPT/HCPCS: 54430; 96365; 96361; 93005; 85025 ×3; 80048 ×2; 36415; 85610; 80307; 72191; 82805 ×4; 96375; 99285; 36600 ×2; Q9967; J1644 ×3; J2704; J2371 ×2; J2001 ×5; J2250; J3010; J2270; J1170 ×8; J2405 ×2; G0378 ×4; J7120 ×5; J7050 ×2; J7030 ×3; J0696 ×4